=== PATIENT | male | born 1945 | race Caucasian/White ===

== ENCOUNTER 2019-05-08 12:38 | Inpatient (IN) | payer MEDICARE, OTHER ==
[~2019-05-08] VITALS: Ht 185.4 cm; Wt 100.7 kg
[~2019-05-08 12:38] MED LIST: ACCUNEB SO1.25 MG/1 INH; BROVANA15 MCG/2 M INH; CALCIUM CITRATE PO; CARDIZEM CD120 MG PO; DUONEB 2.5-0.5 M3 ML INH; FISH OIL 1,001000 M2 PO; FLOMAX0.4 MG PO; IMDUR 30 MG TAB30 M1 PO; KLOR-CON 1010 MEQ PO; LASIX 20 MG TAB20 MG PO; LEVAQUIN 500 M500 M1 PO; LIPITOR 20 MG T20 M1 PO; MELATONIN5 M1 PO; METFORMIN; PLAVIX 75 MG TA75 M1 PO; POTASSIUM; PREDNISONE 10 M10 MG PO; XARELTO20 MG PO
[2019-05-08 12:49] VITALS: BP 119/55
[2019-05-08] MEDS ORDERED: CENTRUM SILVER1 EAC4 PO (12:58)
[2019-05-08] MEDS ORDERED: IRON325 PO (12:59)
[2019-05-08] MEDS ORDERED: CARTIA XT120 M1 PO (12:59)
[2019-05-08 13:22] LABS: ABSOLUTE EOSINOPHILS 0.1 thou/uL (0.0-0.7); ABSOLUTE LYMPHOCYTES 1.2 thou/uL (0.8-5.3); ABSOLUTE MONOCYTES 1.3 thou/uL (0.0-1.2); BASOPHILS 0.2 %; EOSINOPHILS 0.8 %; HEMATOCRIT 33.4 % (42.0-52.0); HEMOGLOBIN 10.8 gm/dL (14.0-18.0); LYMPHOCYTES 17.8 %; MCH 32.7 pg (26.0-34.0); MCHC 32.3 g/dL (28.0-37.0); MCV 101.1 fL (80.0-100.0); MPV 10.6 fl. (7.2-11.1); NUCLEATED RBCS 0 /100WBC; PLATELET COUNT* 245 thou/uL (150-400); POLYS 61.2 %; WBC 6.6 thou/uL (4.0-11.0)
[2019-05-08 13:30] LABS: APTT 36.2 Seconds (25.0-31.3); INR 1.4; PROTIME 14.7 Seconds (9.20-11.50)
[2019-05-08 13:31] LABS: ANION GAP 5 mmol/L (7-16); BUN 26 mg/dL (7-18); CALCIUM 8.8 mg/dL (8.5-10.1); CHLORIDE 102 mmol/L (98-107); CO2 31 mmol/L (21-32); CREATININE 1.3 mg/dL (0.6-1.3); GLUCOSE 126 mg/dL (70-99); POTASSIUM 4.1 mmol/L (3.5-5.1); SODIUM 138 mmol/L (136-145)
[2019-05-08 13:38] LABS: BE 6.6 mmol/L (-2 to +3); PO2 85.8 mmHg (75.0-100.0); pH 7.402 (7.340-7.450)
[2019-05-08 13:40] LABS: PCO2 53.6 mmHg (35.0-45.0)
[2019-05-08 13:42] LABS: ALBUMIN 2.9 g/dL (3.4-5.0); ALKALINE PHOSPHATASE 70 U/L (46-116); NT-PRO BRAIN NAT PEPTIDE 159 pg/mL (<300); SGOT 20 U/L (15-37); SGPT 27 U/L (30-65); TOTAL BILIRUBIN 0.5 mg/dL (<0.1-1.0); TOTAL PROTEIN 7.5 g/dL (6.4-8.2); TROPONIN-I LEVEL <0.06 ng/mL (<0.06)
[2019-05-08 15:19] VITALS: BP 116/51
[2019-05-08 17:32] VITALS: BP 122/53
--- NOTE | 2019-05-08 19:00 | NUR ---
PATIENT ARRIVED TO UNIT AT APPROX 1530 FROM ED. ADMISSION HISTORY AND ASSESSMENT COMPLETED AND CHARTED. VSS ON 6 LITERS 02. PATIENT STATED HOME 02 SAT BASELINE IS 90-91. ASSESSMENT SAT 91-94. FLUIDS INFUSED FROM ED ORDERED. PATIENT AND FAMILY ORINETED TO ROOM AND UNIT. WALKER PROVIDED FOR PATIENT TO USE IN ROOM. STAND BY ASSIST. HOURLY ROUNDS COMPLETED. CALL LIGHT WITHIN REACH. NURSING WILL CONTINUE TO MONITOR.
[2019-05-08 19:56] LABS: CALCIUM 8.5 mg/dL (8.5-10.1); CREATININE 1.3 mg/dL (0.6-1.3); MAGNESIUM 1.8 mg/dL (1.8-2.4); POTASSIUM 3.9 mmol/L (3.5-5.1)
[2019-05-08 21:20] VITALS: BP 130/63
--- NOTE | 2019-05-09 05:13 | NUR ---
PT A&O. VSS ON 6L NC. PT SLEPT OFF AND ON THIS SHIFT. PT TO BATHROOM WITH WALKER AND STANDBY ASSIST. IN THE ROOM WITH PT. MEDS GIVENS PER EMAR. PT RECIEVED TYLENOL BEGINING OF SHIFT FOR LH PAIN. COMPLETE RELIEF NOTED. PT DENIES NAUSEA. CALL LIGHT REACH. HOURLY ROUNDINGS MADE. WILL CONTINUE TO MONITOR.
[2019-05-09 08:12] VITALS: BP 148/71
--- NOTE | 2019-05-09 15:37 | EKG ---
[place] [address] ELECTROCARDIOGRAM REPORT Name: LIONEL DO Room: [address] ADM IN [facility].#: [id number] Admission: 05/08/19 Attend Phys: Mark Paredes Discharge: Date of : 45 Report #: [id number] THIS REPORT FOR: //name// [facility] ED Test Date: 2019-05-08 Test Time: 13:58:01 Pat Name: LIONEL DO Department: Room: [facility] Gender: Bulb Planter: Warren LYNN : 1945 Requested By: Keith Tinsley Order Number: [id number] MD: Brandon Newton Measurements Intervals [place] Rate: 68 P: 37 MS: 185 QRS: 51 QRSD: 114 T: 47 QT: 440 QTc: 469 Interpretive Statements Sinus rhythm Atrial premature complex Borderline intraventricular conduction delay Baseline wander in lead(s) V3 Compared to ECG 11/10/2017 01:35:31 Atrial premature complex(es) now present Atrial fibrillation no longer present T-wave abnormality no longer present Electronically Signed On 05-09-2019 15:37:20 CDT by Brandon Newton [email or web address] <ELECTRONICALLY SIGNED> By: Brandon Newton MD, MERGED WITH [facility] 05/09/19 1537 [id number] Brandon Newton MD, FAC /EPI
--- NOTE | 2019-05-09 16:47 | NUR ---
ASSUMED CARE AT 0730. ALERT ORIENTED PLEASANT COOPERATIVE. HX OF SOA AND WEAKNESS. ON 6L/M PER N/C CONTINOUS AMBULATES TO BR HAD BM THIS A.M. VOIDS IN TOILET ALSO. DENIES PAIN OR REQUESTS. IV ANTIBIOTICS X 2. NON PRODUCTIVE COUGH AT TIMES. AT BEDSIDE. APPETITE GOOD. O2 SAT 89% AFTER AMBULATING TO BR THIS A.M.
--- NOTE | 2019-05-09 16:48 | NUR ---
PT.LYING IN BED. ON COT IN ROOM. BOTH HAVE O2. PT.STATES HE IS FAIRLY INDEPENDENT AT HOME. AT ONE POINT EARLIER THIS YEAR HE WAS SWIMMING LAPS AT THE [facility] WITH HIS O2 ON. HE HAD CATARACT SURGERY AND GOT DE CONDITIONED. IT WOULD HELP HIM IF HE HAD SOMEONE TO GO WITH HIM AND GET HIS O2 BY THE POOLSIDE HE USES [employer] IN THE POOL. HE INQUIRED ABOUT THE WHOLE PERSON. EXPLAINED HE WOULD NEED TO HAVE MEDICAID FOR THAT. EXPLAINED HE COULD HIRE PRIVATED DUTY. HE SAID IM NOT PAYING THAT. HE SAID HIS MARIANNA DRIVES HIM THERE BUT HE USUALLY WONT STAY TO TAKE CARE OF THE O2. HE HAS USED [facility] IN THE PAST AND WOULD USE THEM AGAIN IF NEEDED. O2 IS THROUGH [facility]. ALSO HAS A NEBULIZer,HOSPITaL BED ,WALKER AND HANDICAP TOILET.
[2019-05-09 19:30] VITALS: BP 107/55
[2019-05-09 19:33] VITALS: BP 154/67
[2019-05-10 04:23] LABS: ABSOLUTE LYMPHOCYTES 1.5 thou/uL (0.8-5.3); ABSOLUTE MONOCYTES 1.8 thou/uL (0.0-1.2); ABSOLUTE NEUTROPHILS 7.9 thou/uL (1.6-8.1); BASOPHILS 0.2 %; EOSINOPHILS 0.1 %; HEMATOCRIT 30.3 % (42.0-52.0); HEMOGLOBIN 9.8 gm/dL (14.0-18.0); MCH 32.8 pg (26.0-34.0); MCHC 32.4 g/dL (28.0-37.0); MCV 101.2 fL (80.0-100.0); MONOCYTES 16.1 %; MPV 10.9 fl. (7.2-11.1); NUCLEATED RBCS 0 /100WBC; PLATELET COUNT* 235 thou/uL (150-400); POLYS 70.6 %; RBC 2.99 mil/uL (4.50-6.00); RDW-CV 19.2 % (10.5-14.5); WBC 11.1 thou/uL (4.0-11.0)
[2019-05-10 05:02] LABS: CALCIUM 8.2 mg/dL (8.5-10.1); CREATININE 1.4 mg/dL (0.6-1.3); POTASSIUM 4.1 mmol/L (3.5-5.1)
--- NOTE | 2019-05-10 05:45 | NUR ---
PT ALERT AND ORIENTED. VSS ON 8L HFNC. PT'S WAS WITH PT BEGINNING OF SHIFT, WENT HOME AFTERWARDS. PT'S UP AD AZAR BUT A LITTLE DEMANDING LAST NIGHT , CALLING SEVERAL TIMES TO ADJUST HIS BEDSHEET. CALL LIGHT WITHIN REACH. HOURLY ROUNDINGS MADE. MED GIVEN PER MEAR. PT DENIES NAUSEA. NO PAIN MED GIVEN THIS SHIFT. WILL CONTINUE TO MONITOR.
[2019-05-10 07:40] VITALS: BP 121/68
--- NOTE | 2019-05-10 16:45 | NUR ---
PATIENT UP TO CHAIR FOR MEALS. UP WITH SBA, 02 REMAINS AT 9L. PATIENT CONCERNED THAT PATIENT HAS NOT BEEN RECEIVING BORVANA, DR. TERRY NOTIFIED AND AWAITING CALL BACK. IVF ABX FINISHED THIS AM, PO ABX TO START IN AM.
[2019-05-10 19:50] VITALS: BP 129/69
--- NOTE | 2019-05-11 06:49 | NUR ---
PT ALERT AND ORIENTED. VSS ON 9L NC. PT SLEPT OFF AND ON THIS SHIFT. PT SAID STEROID WAS MAKING HIM "BITCHY". PT'S CALL LIGHTS WERE ANSWERED ANYTIME HE CALLED BUT HE FELT LIKE HE WAS NOT BEING ATTENDED TO FAST ENOUGH HE WOULD WANT. PT UP AD AZAR TO BATHROOM. PT DENIES NAUSEA. CALL LIGHT WITHIN REACH. HOURLY ROUNDINGS MADE. PT TRANSFERED TO ROOM 315 ON 3W AT CHANGE OF SHIFT.
[2019-05-11 08:30] VITALS: BP 148/62
[2019-05-11 16:32] VITALS: BP 118/40
--- NOTE | 2019-05-11 17:31 | NUR ---
PATIENT UP TO CHAIR MOST OF SHIFT. AMBULATED IN HALLS WITH 02 TANK, NO DIFFICULTY NOTED. IV SL, SCHED STEROIDS GIVEN ORDERED. GOOD APPETITE. PATIENT TITRATED DOWN TO 7L HF PER RT THIS EVENING, 02 SAT 92-95%. POSSIBLE DISCHARGE TOMORROW.
[2019-05-11 20:17] VITALS: BP 127/73
--- NOTE | 2019-05-12 06:48 | NUR ---
PATIENT SLEPT MOST OF THE NIGHT. IV REMAINS SALINE LOCKED. PATIENT REMAINS ON OXYGEN AT 7L PER HFNC. PATIENT IS POSSIBLY GOING HOME TODAY. WILL CONTINUE TO MONITOR.
[2019-05-12 08:00] VITALS: BP 133/79
[2019-05-12] MEDS ORDERED: AZITHROMYCIN 2250 MG PO (12:21)
[2019-05-12] MEDS ORDERED: SINGULAIR 10 MG10 M1 PO (12:21)
[2019-05-12] MEDS ORDERED: PREDNISONE 10 M10 MG PO (12:21)
[2019-05-12] MEDS ORDERED: CEFDINIR300 MG PO (12:21)
[2019-05-12] MEDS ORDERED: TYLENOL325 MG PO (12:48)
[2019-05-12 12:52] VITALS: BP 133/79
--- NOTE | 2019-05-12 14:20 | NUR ---
Pt to dc home with today. SW arranged for pt to receive higher liter flow oxygen concentrator at home at dc. Faxed referral info along with testing and orders. Pt now on 6L oxygen for home through [facility]. No other dc needs expressed. Pt had requested info for AD/DPOA; pt completed DPOA and SW notarized. Original and copy with pt. Copy in chart.
[2019-05-12] MEDS ORDERED: IPRAT-ALBUT 0.5-3 ML INH (14:54)
[2019-05-12 15:21] VITALS: BP 133/79
--- NOTE | 2019-05-12 16:05 | NUR ---
PATIENT DISCHARGED TO HOME WITH HOME HEALTH. DISCHARGE PAPERS REVIEWED AND SIGNED. PRESCRIPTIONS AND INFORMATION SHEETS GIVEN. IV REMOVED. PATIENT GIVEN OXYGEN TANK FROM [facility]. PATIENT TAKEN BY WHEELCHAIR TO EXIT. LEFT WITH .
== END 2019-05-12 16:05 | disposition home health service (06) | DRG 177 ==
LOC: M.ERS 12:38 → M.ORTHSURG 14:37 → M.TBA-ER 14:37 → M.ORTHSURG 15:32 → M.3W 05-11 06:57
PROVIDERS: Emergency Medicine Emergency Medical Services; ADMIT Internal Medicine
DX: J15.6 Pneumonia due to other Gram-negative bacteria (principal); J96.20 Acute and chronic respiratory failure, unspecified whether with hypoxia or hypercapnia; I50.9 Heart failure, unspecified; E78.00 Pure hypercholesterolemia, unspecified; I25.2 Old myocardial infarction; Z98.49 Cataract extraction status, unspecified eye; Z86.73 Personal history of transient ischemic attack (TIA), and cerebral infarction without residual deficits; Z79.899 Other long term (current) drug therapy

== ENCOUNTER 2019-06-05 20:03 | Inpatient (IN) | payer MEDICARE, OTHER ==
[~2019-06-05] VITALS: Ht 182.9 cm; Wt 108.9 kg
[~2019-06-05 20:03] MED LIST changes: +AZITHROMYCIN 2250 MG PO; +CARTIA XT120 M1 PO; +CEFDINIR300 MG PO; +CENTRUM SILVER1 EAC4 PO; +IPRAT-ALBUT 0.5-3 ML INH; +IRON325 PO; +SINGULAIR 10 MG10 M1 PO; +TYLENOL325 MG PO
[2019-06-05 20:04] VITALS: BP 131/64
[2019-06-05 20:24] LABS: HEMATOCRIT 32.8 % (42.0-52.0); HEMOGLOBIN 10.6 gm/dL (14.0-18.0); MCH 33.3 pg (26.0-34.0); MCHC 32.5 g/dL (28.0-37.0); MCV 102.3 fL (80.0-100.0); MPV 10.1 fl. (7.2-11.1); NUCLEATED RBCS 0 /100WBC; PLATELET COUNT* 210 thou/uL (150-400); RDW-CV 19.6 % (10.5-14.5); WBC 5.6 thou/uL (4.0-11.0)
[2019-06-05 20:36] LABS: APTT 36.6 Seconds (25.0-31.3); INR 1.2; PROTIME 12.6 Seconds (9.20-11.50)
[2019-06-05 20:40] LABS: ANION GAP 8 mmol/L (7-16); BUN 20 mg/dL (7-18); CALCIUM 8.8 mg/dL (8.5-10.1); CHLORIDE 98 mmol/L (98-107); CO2 33 mmol/L (21-32); CREATININE 1.2 mg/dL (0.6-1.3); GLUCOSE 120 mg/dL (70-99); POTASSIUM 4.2 mmol/L (3.5-5.1); SODIUM 139 mmol/L (136-145)
[2019-06-05 20:51] LABS: ALBUMIN 3.1 g/dL (3.4-5.0); ALKALINE PHOSPHATASE 69 U/L (46-116); LIPASE 100 U/L (73-393); MAGNESIUM 1.8 mg/dL (1.8-2.4); NT-PRO BRAIN NAT PEPTIDE 153 pg/mL (<300); SGOT 30 U/L (15-37); SGPT 48 U/L (30-65); TOTAL BILIRUBIN 0.5 mg/dL (<0.1-1.0); TROPONIN-I LEVEL <0.06 ng/mL (<0.06)
[2019-06-05 20:54] LABS: ABSOLUTE EOSINOPHILS 0.1 thou/uL (0.0-0.7); ABSOLUTE LYMPHOCYTES 0.9 thou/uL (0.8-5.3); ABSOLUTE MONOCYTES 0.6 thou/uL (0.0-1.2); ABSOLUTE NEUTROPHILS 4.1 thou/uL (1.6-8.1); PLATELET ESTIMATE ADEQUATE
[2019-06-05 22:10] VITALS: BP 128/83
[2019-06-05 22:15] VITALS: BP 130/81
[2019-06-06] MEDS ORDERED: MUCINEX1200 MG PO (03:33)
[2019-06-06 04:00] VITALS: BP 129/71
--- NOTE | 2019-06-06 04:55 | NUR ---
RECEIVED PT FROM ED PER CART AT APPROX 2210, ACCOMPANIED BY MARIUSZ YANG. PT IS AWAKE AND ORIENTED X4. VSS ON 6L/ HFC, O2 SAT 90-95%. CAR PINCHER PLACED-TRACING SR. ADMISSION ASSESSMENTS DONE AND CHARTED. PT ADVISED ON THE USE OF CALL LIGHT. PT ORIENTED TO ROOM SET UP. HIGH FALL PRECAUTIONS IN PLACE. PT ENCOURAGED TO DEEP BREATHE. PT PLACED ON MODERATE HIGH BACK REST. HOURLY ROUNDING DONE FOR PT SAFETY.
[2019-06-06 08:00] VITALS: BP 124/61
--- NOTE | 2019-06-06 10:55 | EKG ---
[place] [address] ELECTROCARDIOGRAM REPORT Name: LIONEL DO Room: [address] ADM IN [facility].#: [id number] Admission: 06/05/19 Attend Phys: Aryan De Leon MD Discharge: Date of : 45 Report #: [id number] THIS REPORT FOR: //name// [facility] ED Test Date: 2019-06-05 Test Time: 20:08:31 Pat Name: LIONEL DO Department: Room: [facility] Gender: M Generation Manager: AJ : 1945 Requested By: Pradip Brown Order Number: [id number] MD: Mac Aparicio Measurements Intervals [place] Rate: 82 P: 41 SD: 176 QRS: 51 QRSD: 112 T: 49 QT: 372 QTc: 435 Interpretive Statements Sinus rhythm Borderline intraventricular conduction delay Compared to ECG 05/08/2019 13:58:01 Atrial premature complex(es) no longer present Electronically Signed On 06-06-2019 10:55:01 CDT by Mac Aparicio [email or web address] <ELECTRONICALLY SIGNED> By: Mac Aparicio MD, [facility] 06/06/19 1055 07 07 Mac Aparicio MD, [facility] /EPI
[2019-06-06 12:00] VITALS: BP 127/68
[2019-06-06 13:59] LABS: BE 2.3 mmol/L (-2 to +3); PCO2 42.9 mmHg (35.0-45.0); pH 7.419 (7.340-7.450)
[2019-06-06 14:00] LABS: PO2 53.5 mmHg (75.0-100.0)
--- NOTE | 2019-06-06 15:42 | NUR ---
Pt is A&O. Resides at home with his . Independent. Wears home o2 through [facility]. Pt also has a walker, neb, and hospital bed at home. Hx of [facility] HH. No hx of SNF. Goal is home at dc. Following for dc needs.
[2019-06-06 16:00] VITALS: BP 138/59
[2019-06-06 16:31] LABS: URINE BILIRUBIN NEGATIVE (Negative); URINE BLOOD 1+ (Negative); URINE CLARITY CLEAR; URINE COLOR YELLOW; URINE GLUCOSE-RANDOM NEGATIVE (Negative); URINE KETONES NEGATIVE (Negative); URINE LEUKOCYTES-REFLEX NEGATIVE (Negative); URINE NITRITE-REFLEX NEGATIVE (Negative); URINE PROTEIN 2+ (Negative); URINE SPECIFIC GRAVITY 1.015 (1.005-1.030); URINE UROBILINOGEN 0.2 E.U./dl (0.2-1.0)
[2019-06-06 16:42] LABS: HYALINE CASTS 0-3 Few /LPF (None Seen); SQUAMOUS 0-3 Few /LPF (0-3)
[2019-06-06 16:43] LABS: BACTERIA-REFLEX None Seen /HPF (None Seen); URINE RBC 3-10 Few /HPF (0-2); URINE WBC-REFLEX 0-5 Rare /HPF (0-5)
[2019-06-06 16:44] LABS: CRYSTALS None Seen /LPF (None Seen); MUCUS None Seen strn/LPF (None Seen)
--- NOTE | 2019-06-06 18:34 | NUR ---
ASSUMED PT CARE AT 0700, A&O X4, UP WITH STANDBY AND WALKER, VSS, SLAUGHTERER RELIGIOUS RITUAL TRACING SINUS RHYTHM WITH 1ST DEGREE, CALM AND COOPERATIVE, CALL LIGHT WITHIN REACH. LS DIMINISHED IN ALL LOBES, REMAINS ON O2 AT 8LPM VIA HI LINH NC, PULM CONSULTED. Q 2 HOUR TURNS AND HOURLY ROUNDING COMPLETED.
[2019-06-06 20:00] VITALS: BP 133/61
[2019-06-07] VITALS (8 sets, daily range): BP systolic 110–160; BP diastolic 49–85
[2019-06-07 04:35] LABS: ABSOLUTE LYMPHOCYTES 0.5 thou/uL (0.8-5.3); ABSOLUTE MONOCYTES 0.5 thou/uL (0.0-1.2); ABSOLUTE NEUTROPHILS 7.4 thou/uL (1.6-8.1); BASOPHILS 0.1 %; HEMATOCRIT 31.8 % (42.0-52.0); HEMOGLOBIN 10.3 gm/dL (14.0-18.0); LYMPHOCYTES 5.6 %; MCH 33.2 pg (26.0-34.0); MCHC 32.5 g/dL (28.0-37.0); MCV 102.2 fL (80.0-100.0); MONOCYTES 5.6 %; MPV 10.9 fl. (7.2-11.1); NUCLEATED RBCS 0 /100WBC; PLATELET COUNT* 219 thou/uL (150-400); POLYS 88.7 %; RBC 3.12 mil/uL (4.50-6.00); RDW-CV 19.3 % (10.5-14.5); WBC 8.3 thou/uL (4.0-11.0)
[2019-06-07 04:42] LABS: CALCIUM 8.8 mg/dL (8.5-10.1); CREATININE 1.1 mg/dL (0.6-1.3); POTASSIUM 4.5 mmol/L (3.5-5.1)
--- NOTE | 2019-06-07 06:12 | NUR ---
ASSUMED PT CARE AT APPROX 1930. PT IS AWAKE AND ORIENTED X4. VSS ON 8L OF O2/HFC. HEAD PIECE ASSEMBLER IN PLACE TRACING SR WITH 1D AVB. PT DENIES PAIN/DISCOMFORT. ASSESSMENT DONE AND CHARTED. PT STATED TO SOCCER PLAYER THAT HE "SLID" ON THE FLOOR AND FALL ON HIS RIGHT THIGH.PT WAS SEEN SITTING ON THE THE SIDE OF THE BED BY SOCCER PLAYER. POST FALL VITALS AND ASSESSMENT DONE. NO INJURIES NOTED. PT DENIES PAIN. VITAL SIGNS REMAINED STABLE. FALL PRECAUTIONS IN PLACE. PT REMINDED ON THE USE OF CALL LIGHT. PT CLOSELY MONITORED.
--- NOTE | 2019-06-07 18:40 | NUR ---
ASSUMED PT CARE AT 0700, PT A&O X4, VSS, RESAW OPERATOR TRACING SINUS RHYTHM WITH 1ST DEGREE BLOCK, UP WITH ASSIST X1 AND WALKER. REMAINS ON 8LPM VIA HI LINH NC WITH O2 SATS 87-89%, DR DONALDSON AND DR RESTREPO AWARE. HOURLY ROUNDING COMPLETED.
[2019-06-08 00:10] VITALS: BP 99/46
--- NOTE | 2019-06-08 03:48 | NUR ---
ASSUMED PT CARE APPROX 1930. PT IS AWAKE AND ORIENTED X4. VSS ON 8L OF O2/HFC. spO2 BETWEEN 89-92%. ACUTE CARE ASSISTANT IN PLACE TRACING SR WITH 1ST DEG AVB. PT DENIES PAIN. PT IS ABLE TO SLEEP MOST OF THE NIGHT. CALL LIGHT WITHIN REACH. HIGH FALL PRECAUTIONS IN PLACE. HOURLY MONITORING DONE FOR PT SAFETY.
[2019-06-08 04:13] VITALS: BP 115/48
[2019-06-08 08:00] VITALS: BP 120/57
--- NOTE | 2019-06-08 08:05 | CON ---
[address] [address] CONSULTATION Name: LIONEL DO Room: [address] ADM IN M.R.#: [id number] Admission: 06/05/19 Attend Phys: Aryan De Leon MD Discharge: Date of : 45 Report #: [id number] THIS REPORT FOR: //name// CC: Aryan JONES DO Janny Jones DATE OF SERVICE: 06/07/2019 PULMONARY CONSULTATION ATTENDING PHYSICIAN: Aryan De Leon MD LOCATION: He is in room 211. INDICATION FOR CONSULTATION: COPD, hypoxemia. CLINICAL SUMMARY: The patient is a 73-year-old male, prior smoker, with severe COPD. He has been oxygen dependent for about the last 5 years. He has not been steroid or CPAP dependent. The patient presented in the Emergency Department on June 05 with shortness of breath over the past week or so. He has a mild increasing dry cough, just more short of breath, and chest tightness. He was taking extra breathing treatments at home. He is normally on 6 liters of oxygen at home and he desaturates with that. He was having sats in the low 80s on 6 liters and going up to 8-10 liters. He has a 10-liter concentrator at home that he uses. Again, he has been on oxygen the last [address] Yee Barry in our office probably 5 or 8 years ago, has not seen her since. He does his own pulmonary rehab by swimming at the , although he has not done this over the past year or so. He actually gets in the pool with 5 or 6 liters of oxygen and 25 feet of cord and swims from one side to the other side. He can walk 50-75 feet on level ground. He does not do stairs at home. He has some peripheral edema. Denies any aspiration or esophageal reflux. Does have occasional sinus drainage. ALLERGIES: He has no known medical allergies. PAST MEDICAL HISTORY: Include coronary artery disease, prior CVA in the past, he has had atrial fibrillation in the past, severe COPD for the last 5-7 years, oxygen dependent for that time, and he has had 1 prior episode of pneumonia about a month or two ago. He states he may be takes 1 or 2 rounds of prednisone and antibiotics, maybe every other year for bronchitis, but is not a frequent occurrence at home. OUTPATIENT MEDICATIONS: Includes Xarelto 20 mg daily, montelukast 10 mg daily, potassium chloride 10 mEq daily, previously been on cefdinir and a pred taper, [place] [address] CONSULTATION Name: LIONEL DO Room: [address] IN .R.#: [id number] Admission: 06/05/19 Attend Phys: Aryan De Leon MD Discharge: Date of : 45 Report #: [id number] also is on diltiazem 120 mg daily for atrial fib, Lasix 20 mg once daily for edema, DuoNeb treatments 4 times a day. He is also on Brovana or arformoterol 15 mcg b.i.d., also on Flovent 110 mcg 2 puffs b.i.d. after his nebulizer treatments at home. Also, on tamsulosin 0.4 mg daily. OTHER PAST SURGICAL HISTORY: He has had previous stroke without deficits. He has had cataract surgery about a year ago, which kept him out of the pool and he had bilateral cataracts. FAMILY HISTORY: Negative for premature cardiopulmonary disease. SOCIAL HISTORY: The patient is a prior 75-[id number] smoker, smoked 2 packs a day for 30 years, but quit 20 years ago. Worked at [employer] for 30 years and retired from [employer] about 15-20 years ago. Denies any alcohol or illicit drug use. Lives at home with his . REVIEW OF SYSTEMS: A 14 review of systems reviewed and negative except for pertinent positives noted in the HPI. PHYSICAL EXAMINATION: GENERAL: A 73-year-old male who was alert and awake and sitting in chair. He contacted his by a phone and I talked with the patient and his by speaker phone while she was listening to. VITAL SIGNS: Currently, his vital signs are stable. Blood pressure is 136/60 on no pressors, heart rate is 80 and regular, respirations were 16, and temperature is 36.8 degrees. Saturation on 10 liters is 93%. He is normally on 6 liters at home and he is 6-foot 1-inch tall, weight is 105 kilograms or 230 pounds. His BMI is 31. HEENT: Mucous membranes are moist. Oxygen is in place. Pharynx is clear. Mucous membranes again were relatively moist. NECK: Supple, without nodes. No increased jugular venous pressure. CHEST: Reveals markedly diminished breath sounds, prolonged expiratory phase. No definite wheezes noted. He is hyperinflated. CARDIOVASCULAR: Shows regular rate and rhythm without murmur, gallop, or rub. Heart rate is 80, diminished heart tones are noted. ABDOMEN: Moderately obese without masses or megaly. EXTREMITIES: He has trace edema. No cyanosis or clubbing. NEUROLOGIC: Grossly intact. He moves all fours to commands. Nonfocal exam. LABORATORY DATA: Hemoglobin is 10, white count 8300, normal differential, platelets are 219,000. No eosinophils are noted. Sodium is 140, potassium is 4.5, BUN is 27, creatinine 1.1, and glucose is 134. TSH was slightly low at 0.56. Vitamin B12 is normal at 569. Beta-type natriuretic peptide is normal at 153. I do not have an echo or PFTs on him. He states it has probably been 6 or 8 years since they done any PFTs. Chest x-ray shows upper lobe emphysema, COPD, hyperinflation, mild pulmonary artery enlargement. He [place] [address] CONSULTATION Name: LIONEL DO Room: [address] IN [facility].#: [id number] Admission: 06/05/19 Attend Phys: Aryan De Leon MD Discharge: Date of : 45 Report #: [id number] infiltrate. Some of this could be fibrosis and scar tissue in the right lower lobe. No prior films available. He did have a CAT scan a year and a half ago I believe negative for pulmonary emboli. IMPRESSION: 1. Very severe COPD with hypoxemia, has a refractory hypoxemia at this time, probably has underlying pulmonary fibrosis as well as emphysema contributing to his dyspnea. 2. Exacerbation by right lower lobe pneumonia or infiltrates. 3. Atrial fib, on chronic anticoagulation. PLAN: Will continue on current antibiotics and steroids and meds. If he does not clinically improve, he may need a followup chest x-ray in about 48 hours to see if the right lower lobe infiltrate does not start to clear. If not, may be a repeat CT of the chest at some point in time might be indicated if the patient can lie flat, may need some full PFTs or at least some spirometry in the future just to see where his numbers are at. I have again encouraged him to do his own pulmonary rehab. He can do a recumbent exercise bike at home or even a treadmill if his joints will tolerate it. He does need to get in the pool since he has been waylaid by his cataract surgery. I did encourage him to keep doing his own pulmonary rehab. We will be happy to see him in the office as an outpatient if needed. If not, a followup with Dr. Jones ____ in the future. A Trelegy 3 in 1 inhaler may be another good option for him in the future. He does have some pulmonary artery hypertension, so continue with oxygen with his Lasix. This has been a 34-minute critical care consult. <ELECTRONICALLY SIGNED> By: Yee Barry MD 06/08/19 0805 1106 [id number] d Lundberg MD /nt
[2019-06-08 12:00] VITALS: BP 104/57
[2019-06-08 16:00] VITALS: BP 16/53
--- NOTE | 2019-06-08 18:01 | NUR ---
ASSUMED PT CARE AT 0700, PT UP WITH ASSIST X1 AND WALKER, VSS, UNIFIED COMMUNICATIONS ARCHITECT TRACING SINUS RHYTHM, REMAINS ON O2 AT 8LPM VIA HI LINH NC, TOLERATING WELL BUT CONT TO DESAT INTO 70'S WITH AMBULATION AND SOME THERAPY. ABLE TO MAKE NEEDS KNOWN, CALL LIGHT IN REACH, FULL ASSESSMENT CHARTED, HOURLY ROUNDING COMPLETED.
[2019-06-08 20:00] VITALS: BP 130/57
[2019-06-09] VITALS: BP 111/56
[2019-06-09 04:00] VITALS: BP 105/49
--- NOTE | 2019-06-09 05:38 | NUR ---
PATIENT SLEPT MOST OF THE NIGHT. PATIENT REMAINS ON OXYGEN AT 8L HFNC. IV REMAINS SALINE LOCKED. PATIENT IS POSSIBLY GOING HOME TODAY OR TOMORROW. WILL CONTINUE TO MONITOR.
[2019-06-09 05:44] LABS: CALCIUM 8.4 mg/dL (8.5-10.1); CREATININE 1.1 mg/dL (0.6-1.3); POTASSIUM 5.2 mmol/L (3.5-5.1)
[2019-06-09 08:30] VITALS: BP 122/59
[2019-06-09 11:30] VITALS: BP 107/51
[2019-06-09 16:00] VITALS: BP 124/55
--- NOTE | 2019-06-09 17:35 | NUR ---
ASSUMED CARE OF PT AROUND 0730 THIS AM. REFER TO ASSESSMENT. VSS. TITRATED PT TO 7L HFNC OXYGEN. PT TOLERATING AT THIS TIME. PT REPORTS HE WEARS 6.5 L OXYGEN AT HOME. TELE SR WITH PVC'S. NO OTHER CONCERNS AT THIS TIME. CLWR. WCTM.
[2019-06-09 19:35] VITALS: BP 125/72
[2019-06-10] VITALS (8 sets, daily range): BP systolic 117–135; BP diastolic 39–78
--- NOTE | 2019-06-10 01:08 | NUR ---
ASSUMED CARE OF PT AT 1900. PT IS ALERT AND ORIENTED. VSS. PERRLA. NO COMPLAINTS OF PAIN. PT IS ON 7 LITERS OF O2. PT REFUSES TO LET US TURN DOWN HIS O2. PT IS IN SINUS RYTHM ON THE TELEMETRY. PT IS RESTING COMFORTABLY IN BED. RESPIRATIONS ARE EVEN AND NONLABORED. WILL CONTINUE TO MONITOR PT.
[2019-06-10 04:44] LABS: HEMATOCRIT 32.1 % (42.0-52.0); HEMOGLOBIN 10.3 gm/dL (14.0-18.0); MCH 32.8 pg (26.0-34.0); MCHC 32.2 g/dL (28.0-37.0); MCV 101.8 fL (80.0-100.0); MPV 10.6 fl. (7.2-11.1); NUCLEATED RBCS 0 /100WBC; PLATELET COUNT* 258 thou/uL (150-400); RBC 3.15 mil/uL (4.50-6.00); RDW-CV 19.6 % (10.5-14.5); WBC 7.5 thou/uL (4.0-11.0)
[2019-06-10 04:47] LABS: CALCIUM 8.5 mg/dL (8.5-10.1); CREATININE 1.1 mg/dL (0.6-1.3)
[2019-06-10 06:12] LABS: ABSOLUTE LYMPHOCYTES 0.8 thou/uL (0.8-5.3); ABSOLUTE MONOCYTES 0.5 thou/uL (0.0-1.2); ABSOLUTE NEUTROPHILS 6.2 thou/uL (1.6-8.1); METAMYELOCYTES 2 %; MYELOCYTES 3 %
[2019-06-10 06:13] LABS: MACROCYTES 1+; PLATELET ESTIMATE ADEQUATE; TOXIC GRANULATION 3+
[2019-06-10 10:02] LABS: BE 4.3 mmol/L (-2 to +3); PO2 70.7 mmHg (75.0-100.0); pH 7.393 (7.340-7.450)
[2019-06-10 10:05] LABS: PCO2 50.5 mmHg (35.0-45.0)
--- NOTE | 2019-06-10 12:12 | NUR ---
TELEGRAPH AND TELETYPE OPERATOR INFORMED OF THE NEED TO SEND A REFERRAL FO A TRILOGY FOR THE PATIENT TO [facility]. D/C CUT PLUG PACKER CONTACTED [facility] TO INFORM OF THE TRILOGY REFERRAL AND FAXED THE PATIENT'S FACESHEET, H&P, PULM NOTES, AND DME ORDER TO [facility]. CM AWAITING A RETURN CALL FROM [facility] TO INFORM OF ABILITY TO PROVIDE TRILOGY FOR PATIENT. CM WILL REMAIN AVAILABLE TO ASSIST AND FOLLOW NEEDED. [facility] PHONE: [phone] FAX: [phone]
--- NOTE | 2019-06-10 18:00 | NUR ---
PT A/O. TELE TRACKING SR AND ALL VSS ON 6L. DENIES CP, STATES HE FEELS LESS SOA TODAY. NOTIFIED TECHNICIAN ANATOMIC PATHOLOGY AND HOSPITALIST OF ABG RESULTS- NO NEW ORDERS. UP IN CHAIR FOR MAJORITY OF SHIFT. EDUCATED ON SAFETY AND PLAN OF CARE. PLEASE SEE ASSESSMENT FOR ADDITIONAL INFORMATION. WILL CONT TO MONITOR
[2019-06-11 03:49] VITALS: BP 129/49
--- NOTE | 2019-06-11 05:23 | NUR ---
ASSUMED CARE OF PT AT 1900. PT IS ALERT AND ORIENTED. VSS. PERRLA. PT IS UP WITH ASSIST. PT IS IN SINUS RYTHM ON THE TELEMETRY. PT IS RESTING COMFORTABLY IN BED. RESPIRATIONS ARE EVEN AND NONLABORED. WILL CONTINUE TO MONITOR PT.
[2019-06-11 06:06] LABS: PO2 90.5 mmHg (75.0-100.0); pH 7.396 (7.340-7.450)
[2019-06-11 06:12] LABS: PCO2 55.7 mmHg (35.0-45.0)
[2019-06-11 08:19] VITALS: BP 115/42
--- NOTE | 2019-06-11 09:58 | NUR ---
RECEIVED REPORT FROM ARNOLDO AND ASSUMED CARE OF PT @ 4302.PT IS A/O X4,VSS,TRACING SR ON THE MONITOR.PT REMAINS ON 6L O2 NC AND BIPAP AT HS.IV PATENT AND SALINE LOCKED-IV ANTIBIOTICS GIVEN.PT IS IRRITABLE BUT COOPERATIVE THIS AM.NO C/O PAIN.PT LEFT SITTING IN CHAIR WITH CALL LIGHT AND FALL PRECAUTIONS IN PLACE.WILL CONTINUE TO [facility].
[2019-06-11 11:30] VITALS: BP 129/57
--- NOTE | 2019-06-11 15:24 | NUR ---
Following for d/c planning needs. Spoke with Johann patino. She said that documentation stated pt tried the BiPAP. Johann patino said that pt would qualify for non-invasive ventilator (trilogy) unit with current pulmonary labs. Documentation will need to be faxed to Johann ([phone]) to qualify for home non-invasive ventilator unit. RN aware of need.
[2019-06-11 16:00] VITALS: BP 104/46
--- NOTE | 2019-06-11 17:14 | NUR ---
VSS.CARDIAC MONITORING IN PLACE WITH NO CHANGES.PT REMAINS ON 6L O2 NC.IV PATENT AND SALINE LOCKED.NO C/O PAIN.HOURLY ROUNDING COMPLETED FOR PT SAFETY.CALL LIGHT AND FALL PRECAUTIONS IN PLACE.WILL CONTINUE TO MONITOR FOR DURAITON OF SHIFT.
[2019-06-11 19:40] VITALS: BP 116/66
[2019-06-12] VITALS: BP 100/61
--- NOTE | 2019-06-12 03:51 | NUR ---
ASSUMED CARE OF PT AT 1900. PT IS ALERT AND ORIENTED. VSS. PERRLA. NO COMPLAINTS OF PAIN. PT IS UP WITH ASSIST. PT IS IN SINUS RYTHM ON THE TELEMETRY. PT IS RESTING COMFORTABLY IN BED. RESPIRATIONS ARE EVEN AND NONLABORED. WILL CONTINUE TO [id number] PT.
[2019-06-12 04:00] VITALS: BP 129/65
[2019-06-12 08:25] VITALS: BP 118/56
--- NOTE | 2019-06-12 08:40 | NUR ---
RECEIVED REPORT FORM ARNOLDO AND ASSUMED CARE OF PT @ 6823.PT IS A/O X4,VSS,TRACING SR WITH PVC ON THE MONITOR.PT REMAINS ON 6L O2 NC WITH O2 SAT AT 100%.IV PATENT AND SALINE LOCKED.PT IS CALM AND COOPERATIVE WITH NO C/O PAIN.PT LEFT RESTING IN BED WITH CALL LIGHT AND FALL PRECAUTIONS IN PLACE.WILL CONTINUE TO MONITOR.
[2019-06-12 12:15] VITALS: BP 117/61
[2019-06-12 15:45] VITALS: BP 128/71
--- NOTE | 2019-06-12 17:52 | NUR ---
VSS.CARDIAC MONITORING IN PLACE WITH NO CHANGES.PT REMAINS ON 6L O2 NC.PT PROGRESSING TOWARDS GOALS.NO C/O PAIN.IV PATENT AND SALINE LOCKED.PT INFORMED OF PLAN OF CARE AND COMMUNICATES UNDERSTANDING.PT HAS BEEN IRRITABLE AND MANIPULATIVE OF STAFF MEMBERS WITH C/O STAFF-CHARGE NURSE NOTIFIED AND HOURSE MACHINE ASSEMBLER.HOURLY ROUNDING COMPELTED FOR PT SAFETY.CALL LIGHT AND FALL PRECAUTIONS IN PLACE.WILL CONTINUE TO MONITOR FOR DURATION OF SHIFT.
[2019-06-12 20:00] VITALS: BP 142/57
[2019-06-13] VITALS: BP 121/61
[2019-06-13 04:00] VITALS: BP 167/60
--- NOTE | 2019-06-13 05:50 | NUR ---
PT CARE ASSUMED AT 1930. SAT MAINTAINED IN O2 AND BIPAP. CALL LIGHT WITHIN REACH AND BED IN LOW POSITION. DENIES PAIN. HOURLY ROUNDING DONE FOR PT SAFETY.
[2019-06-13 08:00] VITALS: BP 124/64
--- NOTE | 2019-06-13 08:55 | NUR ---
Faxed updated pulm note to Yann at [facility]. Waiting to hear back regarding when trilogy will be delivered.
--- NOTE | 2019-06-13 11:07 | NUR ---
CHANGE OF SHIFT BEDSIDE REPORT GIVEN PATIENT SEEN AT BEDSIDE IN RECLINER RESTING ASSUMED PATIENT CARE
[2019-06-13 12:00] VITALS: BP 106/47
[2019-06-13 16:00] VITALS: BP 99/24
--- NOTE | 2019-06-13 16:08 | NUR ---
Nutrition: screen for LOS. Pt reported good appetite and intake. Wt up from April admit at 222 lb. K elevated today. Lasix decreased; MVI, prednsione and other meds reviewed. Per notes, pt may discharge tomorrow. Assess at low nutrition risk.
[2019-06-13 20:00] VITALS: BP 114/58
[2019-06-14] VITALS: BP 123/48
[2019-06-14 04:00] VITALS: BP 118/71
[2019-06-14 04:29] LABS: ABSOLUTE LYMPHOCYTES 1.1 thou/uL (0.8-5.3); ABSOLUTE NEUTROPHILS 7.6 thou/uL (1.6-8.1); BASOPHILS 0.1 %; EOSINOPHILS 0.2 %; HEMATOCRIT 31.6 % (42.0-52.0); HEMOGLOBIN 10.3 gm/dL (14.0-18.0); LYMPHOCYTES 11.4 %; MCH 33.2 pg (26.0-34.0); MCHC 32.6 g/dL (28.0-37.0); MONOCYTES 10.2 %; MPV 10.3 fl. (7.2-11.1); NUCLEATED RBCS 0 /100WBC; PLATELET COUNT* 230 thou/uL (150-400); POLYS 78.1 %; RDW-CV 19.9 % (10.5-14.5); WBC 9.7 thou/uL (4.0-11.0)
[2019-06-14 04:54] LABS: CALCIUM 8.7 mg/dL (8.5-10.1); CREATININE 1.3 mg/dL (0.6-1.3); MAGNESIUM 2.1 mg/dL (1.8-2.4); POTASSIUM 4.1 mmol/L (3.5-5.1); TOTAL BILIRUBIN 0.7 mg/dL (<0.1-1.0); TOTAL PROTEIN 5.9 g/dL (6.4-8.2)
--- NOTE | 2019-06-14 07:02 | NUR ---
PT CARE ASSUMED AT 1930. SAT MAINTAINED IN TRILOGY AND O2. ALERT AND ORIENTED X4. DENIES PAIN AND SOB. CALL LIGHT WITHIN REACH AND BED IN LOW POSITION. HOURLY ROUNDING DONE FOR PT SAFETY.
[2019-06-14 08:00] VITALS: BP 127/64
--- NOTE | 2019-06-14 10:38 | NUR ---
ASSUMED CARE OF PT AT 0730. PT RESTING IN BED WAITING FOR BREAKFAST. PT A&0X4, DENIES ANY PAIN OR SHORTNESS OF BREATH AT THIS TIME. PT TRACING SR ON THE TRANSFER DRIVER. ON 6L HIGH FLOW NC SAT UPPER 90'S. PT WEARS TRILOGY AT [facility]. PT UP SBA TO BATHROOM. PT GOAL FOR TODAY IS DISCHARGE PLANNING TO HOME. AM ASSESMENT CHARTED. MEDICATIONS PER MAR. PT REFUSES TO REPOSITION EVERY 2 HOURS FOR COMFORT. EDUCATION GIVEN. HOURLY ROUNDING OBSERVED. BED IN LOW POSITION. BED ALARM IN PLACE. FALL PRECAUTIONS IN PLACE. CALL LIGHT WITHIN REACH. WILL CONTINUE PLAN OF CARE.
[2019-06-14] MEDS ORDERED: PROTONIX40 M2 PO (11:42)
[2019-06-14] MEDS ORDERED: PREDNISONE 10 M10 MG PO (11:43)
[2019-06-14 12:03] VITALS: BP 127/64
[2019-06-14 12:20] VITALS: BP 127/64
--- NOTE | 2019-06-14 12:23 | NUR ---
Pt discharging to home today, CM to fax HH orders to [facility] once confirmed that they are able to accept Pt. Following.
--- NOTE | 2019-06-14 13:37 | NUR ---
DISCHARGE ORDERS RECEIVED. DISCHARGE INSTRUCTIONS, CARE NOTES, SCRIPTS AND FOLLOW UP APPTS GIVEN TO PT. PT COMMUNICATES UNDERSTANDING OF DISCHARGE TEACHING. IV AND BLOOD BANK LABORATORY PROFESSIONAL REMOVED. PT DISCHARGED WITH ALL BELONGINGS AND PAPERWORK VIA WHEELCHAIR WITH NURSING STAFF TO SPOUSE OWN PERSONAL VEHICLE TO HOME WITH HOME HEALTH.
== END 2019-06-14 13:40 | disposition home health service (06) | DRG 189 ==
LOC: M.ERS 20:03 → M.2W 21:08 → M.TBA-ER 21:08 → M.2W 22:10
PROVIDERS: Family Medicine; Internal Medicine Critical Care Medicine; Internal Medicine Pulmonary Disease; ADMIT Internal Medicine
PROC: 5A09357 Assistance with Respiratory Ventilation, Less than 24 Consecutive Hours, Continuous Positive Airway Pressure (ICD-10-PCS; principal; 2019-06-12)
PROC: 5A09357 Assistance with Respiratory Ventilation, Less than 24 Consecutive Hours, Continuous Positive Airway Pressure (ICD-10-PCS; 2019-06-13)
PROC: 5A09357 Assistance with Respiratory Ventilation, Less than 24 Consecutive Hours, Continuous Positive Airway Pressure (ICD-10-PCS; 2019-06-14)
DX: J96.22 Acute and chronic respiratory failure with hypercapnia (principal); I50.30 Unspecified diastolic (congestive) heart failure; N39.0 Urinary tract infection, site not specified; I13.0 Hypertensive heart and chronic kidney disease with heart failure and stage 1 through stage 4 chronic kidney disease, or unspecified chronic kidney disease; J96.21 Acute and chronic respiratory failure with hypoxia; Z68.32 Body mass index [BMI] 32.0-32.9, adult; E78.00 Pure hypercholesterolemia, unspecified; I25.10 Atherosclerotic heart disease of native coronary artery without angina pectoris; I48.2 Chronic atrial fibrillation; N18.3 Chronic kidney disease, stage 3 (moderate); E87.70 Fluid overload, unspecified; E66.9 Obesity, unspecified; J43.9 Emphysema, unspecified; Z79.899 Other long term (current) drug therapy; Z86.73 Personal history of transient ischemic attack (TIA), and cerebral infarction without residual deficits; Z98.49 Cataract extraction status, unspecified eye; Z87.891 Personal history of nicotine dependence; Z79.01 Long term (current) use of anticoagulants; Z95.5 Presence of coronary angioplasty implant and graft; Z99.81 Dependence on supplemental oxygen

== ENCOUNTER 2019-06-28 15:30 | Emergency (ER) | payer MEDICARE, OTHER ==
[~2019-06-28] VITALS: Ht 182.9 cm; Wt 99.3 kg
[~2019-06-28 15:30] MED LIST changes: +MUCINEX1200 MG PO; +PROTONIX40 M2 PO
[2019-06-28 16:00] LABS: ABSOLUTE EOSINOPHILS 0.1 thou/uL (0.0-0.7); ABSOLUTE LYMPHOCYTES 0.7 thou/uL (0.8-5.3); ABSOLUTE MONOCYTES 1.2 thou/uL (0.0-1.2); ABSOLUTE NEUTROPHILS 4.3 thou/uL (1.6-8.1); BASOPHILS 0.7 %; HEMATOCRIT 33.4 % (42.0-52.0); HEMOGLOBIN 10.8 gm/dL (14.0-18.0); LYMPHOCYTES 10.5 %; MCH 33.2 pg (26.0-34.0); MCHC 32.2 g/dL (28.0-37.0); MCV 103.2 fL (80.0-100.0); MONOCYTES 18.8 %; MPV 10.2 fl. (7.2-11.1); NUCLEATED RBCS 0 /100WBC; PLATELET COUNT* 269 thou/uL (150-400); RBC 3.24 mil/uL (4.50-6.00); RDW-CV 20.6 % (10.5-14.5); WBC 6.2 thou/uL (4.0-11.0)
[2019-06-28 16:06] LABS: BE 4.6 mmol/L (-2 to +3); PCO2 47.2 mmHg (35.0-45.0); PO2 76.5 mmHg (75.0-100.0); pH 7.419 (7.340-7.450)
[2019-06-28 16:07] LABS: INR 1.4; PROTIME 14.5 Seconds (9.20-11.50)
[2019-06-28 16:08] LABS: ANION GAP 4 mmol/L (7-16); BUN 28 mg/dL (7-18); CALCIUM 8.4 mg/dL (8.5-10.1); CHLORIDE 100 mmol/L (98-107); CO2 33 mmol/L (21-32); CREATININE 1.2 mg/dL (0.6-1.3); GLUCOSE 93 mg/dL (70-99); POTASSIUM 4.2 mmol/L (3.5-5.1); SODIUM 137 mmol/L (136-145)
[2019-06-28 16:19] LABS: ALKALINE PHOSPHATASE 50 U/L (46-116); LIPASE 105 U/L (73-393); NT-PRO BRAIN NAT PEPTIDE 211 pg/mL (<300); SGOT 18 U/L (15-37); SGPT 45 U/L (30-65); TOTAL BILIRUBIN 0.9 mg/dL (<0.1-1.0); TOTAL PROTEIN 6.1 g/dL (6.4-8.2); TROPONIN-I LEVEL <0.06 ng/mL (<0.06)
[2019-06-28] MEDS ORDERED: PREDNISONE 10 M10 M1 PO (16:35)
[2019-06-28 16:43] VITALS: BP 117/61
[2019-06-28 16:51] LABS: LARGE PLATELETS OCCASIONAL; PLATELET ESTIMATE ADEQUATE
[2019-06-28 16:52] LABS: ANISOCYTOSIS 1+; MACROCYTES 1+; OVALOCYTES Occasional
[2019-06-28 16:54] LABS: CLUMPED PLTS RARE
--- NOTE | 2019-06-29 12:34 | EKG ---
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: [facility] [place] : 1945 Requested By: Bryn Nur Order Number: [id number] MD: Brandon Newton Measurements Intervals [place] Rate: 80 P: 50 MD: 169 QRS: 60 QRSD: 113 T: 57 QT: 406 QTc: 469 Interpretive Statements Sinus rhythm Multiple ventricular premature complexes Borderline intraventricular conduction delay Compared to ECG 06/05/2019 20:08:31 Ventricular premature complex(es) now present Electronically Signed On 06-29-2019 12:34:11 CDT by Brandon Newton [email or web address] <ELECTRONICALLY SIGNED> By: Brandon Newton MD, [facility] 06/29/19 1234 1536 153 Brandon Newton MD, [facility] /EPI
== END 2019-06-28 16:43 | disposition home or self-care (01) ==
LOC: M.ERS 15:30
PROVIDERS: Emergency Medicine
DX: J44.1 Chronic obstructive pulmonary disease with (acute) exacerbation (principal); E78.00 Pure hypercholesterolemia, unspecified; I50.9 Heart failure, unspecified; I25.10 Atherosclerotic heart disease of native coronary artery without angina pectoris; I48.0 Paroxysmal atrial fibrillation; Z90.49 Acquired absence of other specified parts of digestive tract; Z86.73 Personal history of transient ischemic attack (TIA), and cerebral infarction without residual deficits